=== PATIENT | male | born 1995 | race Caucasian/White ===

== ENCOUNTER 2020-08-30 13:10 | Emergency (ER) | payer OTHER, SELFPAY ==
--- NOTE | ~2020-08-30 | CT_ITS ---
EXAMINATION: NONCONTRAST HEAD CT NONCONTRAST CERVICAL SPINE CT INDICATION INFORMATION: Headache. Neck pain. COMPARISON: None TECHNIQUE: Separate noncontrast CT examinations of the head and cervical spine were performed. Coronal and sagittal images were created for each examination at the technologist workstation. This CT examination was performed using dose optimization techniques as appropriate, variously including the following: *Automated exposure control *Adjustment of mA and/or kV according to patient size (this includes techniques or standardized protocols for targeted exams where dose is matched to indication/reason for exam; i.e. extremities or head) *Use of iterative reconstruction technique DLP: 1312 mGy-cm FINDINGS: Head: There is no evidence of acute intracranial hemorrhage or territorial infarction. No abnormal mass effect or midline shift is seen. Barone to white matter differentiation is well preserved. No extra-axial fluid collections are identified. No hydrocephalus. No significant volume loss. There is no abnormal attenuation within the brain parenchyma. No acute osseous or soft tissue abnormality. The mastoid air cells and visualized portions of the paranasal sinuses are well aerated. Cervical spine: There is anatomic alignment of the vertebral bodies and posterior elements. The atlantoaxial and atlantooccipital articulations are intact. Vertebral body heights and intervertebral disc spaces are maintained. No evidence of acute fracture. No prevertebral soft tissue swelling. Visualized portions of the lung apices are unremarkable. The thyroid gland is unremarkable. CT/CT head/brain wo con IMPRESSION: 1. No acute intracranial finding. 2. No suspicious findings of the cervical spine.
--- NOTE | ~2020-08-30 | CT_ITS ---
EXAMINATION: CT ANGIOGRAM NECK WITH CONTRAST CT ANGIOGRAM BRAIN WITH CONTRAST CLINICAL INFORMATION: Patient with headache after working out. Question dissection. COMPARISON: Noncontrast head CT 08/30/2020. TECHNIQUE: Test bolus sequences followed by intravenous administration 70 mL of Omnipaque 350. Helical imaging was performed in the axial plane from the thoracic inlet to the skull vertex. Delayed postcontrast imaging of the head was also performed. The data was processed at the veterinary surgery technologist workstation for generation of MIP sequences. Angled MIPs and volume rendered reformatted images were also generated at an offline 3D workstation. Stenoses are assessed in accordance with NASCET criteria unless otherwise indicated. This CT examination was performed using dose optimization techniques as appropriate, variously including the following: *Automated exposure control *Adjustment of mA and/or kV according to patient size (this includes techniques or standardized protocols for targeted exams where dose is matched to indication/reason for exam; i.e. extremities or head) *Use of iterative reconstruction technique DLP: 1786 mGy-cm FINDINGS: Head CT: There is no intracranial hemorrhage, large acute infarction, or mass lesion. The ventricles are normal in size and configuration without evidence of hydrocephalus. There is no abnormal enhancement. The dural venous sinuses demonstrate normal opacification. Minimal paranasal sinus mucosal thickening is noted. Neck CTA: The aortic arch is patent. The great vessel origins are patent. The bilateral common and internal carotid arteries are normal in course and caliber. The bilateral vertebral arteries are normal in course and caliber. The vertebral arteries appear codominant. Head CTA: No proximal vessel occlusion is seen. The anterior and posterior circulations appear normal. No aneurysm is seen. The dural venous sinuses are normally opacified. Non-vascular findings: The upper lungs are grossly clear. The cervical soft tissues are unremarkable. No significant degenerative changes seen within the spine. CT/CT angio head neck IMPRESSION: Normal appearance of the major intracranial and neck arteries. No intracranial abnormality identified.
--- NOTE | ~2020-08-30 | CT_ITS ---
EXAMINATION: NONCONTRAST HEAD CT NONCONTRAST CERVICAL SPINE CT INDICATION INFORMATION: Headache. Neck pain. COMPARISON: None TECHNIQUE: Separate noncontrast CT examinations of the head and cervical spine were performed. Coronal and sagittal images were created for each examination at the technologist workstation. This CT examination was performed using dose optimization techniques as appropriate, variously including the following: *Automated exposure control *Adjustment of mA and/or kV according to patient size (this includes techniques or standardized protocols for targeted exams where dose is matched to indication/reason for exam; i.e. extremities or head) *Use of iterative reconstruction technique DLP: 1312 mGy-cm FINDINGS: Head: There is no evidence of acute intracranial hemorrhage or territorial infarction. No abnormal mass effect or midline shift is seen. Barone to white matter differentiation is well preserved. No extra-axial fluid collections are identified. No hydrocephalus. No significant volume loss. There is no abnormal attenuation within the brain parenchyma. No acute osseous or soft tissue abnormality. The mastoid air cells and visualized portions of the paranasal sinuses are well aerated. Cervical spine: There is anatomic alignment of the vertebral bodies and posterior elements. The atlantoaxial and atlantooccipital articulations are intact. Vertebral body heights and intervertebral disc spaces are maintained. No evidence of acute fracture. No prevertebral soft tissue swelling. Visualized portions of the lung apices are unremarkable. The thyroid gland is unremarkable. CT/CT cervical spine wo con IMPRESSION: 1. No acute intracranial finding. 2. No suspicious findings of the cervical spine.
[2020-08-30 13:21] VITALS: BP 130/76; PULSE 76; RESP 18; TEMP 36.5; O2SAT 99; BMI 22.8
--- NOTE | 2020-08-30 15:02 | ED_ITS ---
HPI - Headache General Chief Complaint: Fall Stated Complaint: neck pain Time Seen by Provider: 08/30/20 13:57 Source: patient Mode of arrival: ambulatory Limitations: no limitations History of Present Illness HPI Narrative: 25-year-old male with a past medical history of concussions in the past presenting to the ED with complaints of headaches, nausea and difficulty focusing since Tuesday worse today after he was hanging from a exercise bar approximately 2 ft from the ground and felt/heard a pop therefore he let go and landed on his bilateral feet. Denies any head injury or loss of consciousness. Although is worried due to he reports any time he does any strenuous activity such as intercourse he feels his blood pressure goes up and starts to have the posterior headache again. Denies any other symptoms complaints or concerns at this time. MD elicited complaint: headache Onset (ago): day(s) (Four days) Onset description: other (Happened immediately while he was hanging from the exercise bar) Location: occipital Severity: moderate Quality & Timing: aching, intermittent and progressively worsening Exacerbating factors: exertion and other (Strenuous activity) Relieving factors: nothing Context: other (While hanging from an exercise bar) Associated symptoms: nausea Treatments prior to arrival: none Related Data Allergies Allergy/AdvReac Type Severity Reaction Status Date / Time cashew nut Allergy Blister Verified 08/30/20 13:21 latex AdvReac Redness of Verified 08/30/20 13:21 Skin Review of Systems Review of Systems: Constitutional : No changes in activity, No lethargy, No recent prior head injury, No agitation, No increased fussiness ENT/Mouth : No Ear Pain, No Nasal discharge/drainage Eyes: No Eye Pain, No Swelling, No Redness, No Foreign Body, No Vision Changes Cardiovascular : No Chest Pain, No SOB Respiratory : No Cough Gastrointestinal : + Nausea, No Vomiting, No abdominal Pain Genitourinary : No Dysuria, No Urinary Frequency, No Urinary Incontinence, No Urgency, No Flank Pain Musculoskeletal : No joint pain, No neck stiffness, No back pain/injury Skin : No lacerations Neuro : + Headache, No unsteady gait, No Paresthesias, No Loss of Consciousness, No altered mental status, No dizziness Denies past medical history of HIV, recent trauma, coagulopathy, recent spinal/ epidural procedure, new medication, URI symptoms, close contacts with similar s ymptoms, tick bite, or known CO2 exposure. Yes all other systems are reviewed and are negative [facility] Past Medical History Attestation statement: The following information was validated with the patient. Medical History Concussion Social History Social History Advance Directives: No Advance Directives Information Provided: Yes Physical Exam Vital Signs: Vital Signs: Last Vital Signs Temp 97.7 F 08/30/20 13:21 Pulse 76 08/30/20 13:21 Resp 18 08/30/20 13:21 BP 130/76 08/30/20 13:21 Pulse Ox 99 08/30/20 13:21 Body Mass Index 22.8 Vital signs have been reviewed as normal and appeared to be correct. Blood pressure normal. Heart rate normal. Respiration rate normal. Temperature normal. Oxygen saturation normal. Appearance: Alert. Oriented X3. No acute distress. Head: Normal external exam. Normocephalic. Atraumatic. Able to rotate head bilaterally. Eyes: PERRLA. EOMI. No nystagmus noted. Conjunctiva and sclera normal. Eyelids n ormal. Corneal reflex normal. ENT: EAC normal. TM's Normal. Hearing normal. Pharynx normal. Uvula midline. tongue midline. Moist mucous membranes. No trismus noted. No drooling noted. No muffled voice noted. Neck: Normal inspection. Neck supple. FROM. No adenopathy. Thyroid Normal. No meningeal signs. No neck mass noted. CVS: Normal heart rate and rhythm. Heart sound normal. No murmurs noted. Pulses normal throughout. Respiratory: No respiratory distress. Painless inspiration. Breath sounds normal. No wheezes/rales/rhonchi noted. Chest nontender. No accessory muscle usage noted or decreased air movement noted. Back: Full range of motion noted. Skin: Skin warm and dry. Normal skin color. Normal skin turgor. No rashes/lesions/lacerations noted. Extremities: Extremities exhibit normal range of motion. Extremities nontender. Able to shrug shoulders bilaterally and keep up against resistance. Neuro: Oriented X 3. No motor deficit. No sensory deficit. Reflexes normal. Moving all extremities. No focal motor deficits. Cranial nerves II-XI intact bilaterally. Facial strength normal. Normal cognition. Speech normal. Gait normal. Strength 5/5 throughout. No pronator drift. No tremor noted. No fasciculations noted. Muscle tone normal throughout. No asterixis noted. Txsmie-gf-axgb test normal. Heel to goff test normal. Tandem gait normal. Does not sway with eyes open. Romberg test negative. Rapid alternating movement upper extremity normal. Rapid alternating movement lower extremity normal. Hand drop from overhead-Mrs. face. No rigidity noted. NIHSS score 0. Course Course Course Narrative: 25-year-old male with a past medical history of concussions presenting to the ED with complaints of a headache, nausea and difficulty focusing over the past 4 days after he heard a pop when hanging from an exercise bar for approximately 4 minutes. - on exam patient is alert and oriented x3. Patient appears very anxious otherwise not in any other acute distress. Vital signs are stable within normal limits. No focal neuro deficits are noted. No signs of trauma. Patient has a normal steady gait. - Concern for SAH vs dissection - Plan: Labs, CT scan of brain, CT scan of cervical spine and CT scan of head and neck for dissection. Provide 975 mg of p.o. Tylenol and 2 mg of IV Ativan and re-evaluate. MDM - Headache Medical Records Attestation: I reviewed the patient's medical records. Lab Data Attestation: I reviewed the patient's lab results. Imaging Data CT scan of brain/cervical spine: Attestation: I personally reviewed and interpreted this imaging study as follows: Radiologist's impression: FINDINGS: Head: There is no evidence of acute intracranial hemorrhage or territorial infarction. No abnormal mass effect or midline shift is seen. Barone to white matter differentiation is well preserved. No extra-axial fluid collections are identified. No hydrocephalus. No significant volume loss. There is no abnormal attenuation within the brain parenchyma. No acute osseous or soft tissue abnormality. The mastoid air cells and visualized portions of the paranasal sinuses are well aerated. Cervical spine: There is anatomic alignment of the vertebral bodies and posterior elements. The atlantoaxial and atlantooccipital articulations are intact. Vertebral body heights and intervertebral disc spaces are maintained. No evidence of acute fracture. No prevertebral soft tissue swelling. Visualized portions of the lung apices are unremarkable. The thyroid gland is unremarkable. CT/CT head/brain wo con IMPRESSION: 1. No acute intracranial finding. 2. No suspicious findings of the cervical spine.
[2020-08-30] MEDS: LORazepam 2 MG/ML VIAL IVPUSH (15:15)
[2020-08-30] MEDS: Acetaminophen 325 MG TABLET 975 MG PO (15:15)
[2020-08-30 15:32] VITALS: RESP 18
--- NOTE | 2020-08-30 15:35 | PC.NURSE ---
pt medicated with IV ativan for increasing anxiety secondary to testing for injury and school work. Pt stated symptoms began on tuesday after falling 2 feet from hangboard on to floor no loc.
[2020-08-30 16:12] LABS: MANUAL DIFF FLAG NO
[2020-08-30 16:20] LABS: Basophils Percent Auto 0.2 % (0-2); Eosinophils Absolute Auto 0.2 X10*3/uL (0.0-0.4); Eosinophils Percent Auto 3.9 % (0-4); Hematocrit 45.8 % (42-52); Imm Gran Abs Auto 0.02 X10*3/uL (0.00-0.03); Imm Gran Pct Auto 0.3 % (0.0-0.4); Lymphocytes Absolute Auto 1.5 X10*3/uL (1.2-4.9); Lymphocytes Percent Auto 25.3 % (20-40); Mean Corpuscular HGB Conc 34.9 g/dl (31.0-36.0); Mean Corpuscular Hemoglobin 31.3 pg (27.0-33.0); Mean Corpuscular Volume 89.6 fL (80-98); Mean Platelet Volume 10.3 fL (9.4-12.4); Monocytes Absolute Auto 0.4 X10*3/uL (0.1-1.2); Monocytes Percent Auto 6.3 % (2-11); Neutrophils Absolute Auto 3.8 X10*3/uL (2.0-8.3); Platelet Count 207 X10*3/uL (160-400); Red Blood Count 5.11 X10*6/uL (4.60-5.80); Red Cell Distribution Width 11.3 % (11.0-16.0); White Blood Count 5.9 X10*3/uL (4.8-10.8)
[2020-08-30 16:21] LABS: Prothrombin Time 12.2 SEC (10.8-13.0)
[2020-08-30 16:24] LABS: Partial Thromboplastin Time 34.1 SEC (24.1-38.0)
[2020-08-30 16:45] LABS: Alanine Aminotransferase 18 U/L (0-40); Albumin Level 4.7 g/dL (3.5-5.0); Alkaline Phosphatase 71 U/L (39-117); Anion Gap 14 (12-20); Aspartate Amino Transferase 19 U/L (5-37); Bilirubin Total 1.1 mg/dL (0.0-1.0); Blood Urea Nitrogen 13 mg/dL (9-16); Calcium 9.7 mg/dL (8.4-10.2); Carbon Dioxide 27 mmol/L (22-29); Chloride 105 mmol/L (96-108); Creatinine Clr Calc Pharmacy 133.1; Estimated Glomerular Filt Rate > 60; Glucose Random 90 mg/dL (60-115); Potassium 4.7 mmol/L (3.3-5.1); Sodium 141 mmol/L (135-145); Total Protein 6.9 g/dL (6.5-8.0)
[2020-08-30] MEDS: iohexoL 350 MG/ML 100 ML INFUS..BTL IV (17:16)
[2020-08-30 17:56] VITALS: BP 125/77; PULSE 122; RESP 20; TEMP 37.1; O2SAT 100
== END 2020-08-30 18:45 | disposition home or self-care (01) ==
PROVIDERS: Physician Assistant Medical; Emergency Provider Emergency Medicine Emergency Medical Services
DX: S06.0X0A Concussion without loss of consciousness, initial encounter (principal); S16.1XXA Strain of muscle, fascia and tendon at neck level, initial encounter; X50.1XXA Overexertion from prolonged static or awkward postures, initial encounter; M54.2 Cervicalgia; Y93.B9 Activity, other involving muscle strengthening exercises; Y92.019 Unspecified place in single-family (private) house as the place of occurrence of the external cause; Y99.9 Unspecified external cause status
CPT/HCPCS: 36415; 70450; 70496; 70498; 72125; 80053; 85025; 85610; 85730; 96374; 99284; J2060; Q9967